=== PATIENT | male | born 1940 | race Caucasian/White ===

== ENCOUNTER 2022-12-11 08:29 | Outpatient (CLI) | payer MEDICARE, OTHER | END 2022-12-11 08:30 | disposition home or self-care (01) | LOC: CSHCT 08:29 | PROVIDERS: ATTEND Otolaryngology Plastic Surgery within the Head & Neck | DX: H92.12 Otorrhea, left ear (principal); H65.20 Chronic serous otitis media, unspecified ear; H74.92 Unspecified disorder of left middle ear and mastoid; Z96.22 Myringotomy tube(s) status | CPT/HCPCS: 70480 ==